=== PATIENT | male | born 1990 | race Caucasian/White ===

== ENCOUNTER 2016-11-02 08:12 | Emergency (ER) | payer SELFPAY ==
[2016-11-02 08:26] VITALS: BP 143/96
--- NOTE | 2016-11-02 08:54 | UC ---
Rectal Pain HPI - HPI Summary HPI Summary: Anal pain starting last night with movement and sitting, no BM last night. This morning pain increased, some bleeding with BM. Has had hemorrhoid and polyp in the past requiring surgery. - History Of Current Complaint Chief Complaint: UCGU Stated Complaint: RECTAL PAIN Time Seen by Provider: 11/02/16 08:24 Hx Obtained From: Patient Onset/Duration: Gradual Onset, Lasting Hours Timing: Constant Severity Initially: Mild Severity Currently: Moderate Location Of Pain: Anal Character: Sharp, Pressure Aggravating Factor(s): Bowel Movement, Sitting, Walking Associated Signs And Symptoms: Positive: Rectal Bleeding Related History: Hemorrhoids - Allergies/Home Medications Allergies/Adverse Reactions: Allergies Allergy/AdvReac Type Severity Reaction Status Date / Time No Known Allergies Allergy Verified 11/02/16 08:19 PMH/Surg Hx/FS Hx/Imm Hx Previously Healthy: Yes - Surgical History Surgical History: Yes Surgery Procedure, Year, and Place: [facility] - Family History Known Family History: Positive: None - reviewed & noncontributory - Social History Alcohol Use: Weekly Alcohol Amount: 4 beers 3 times per wek Substance Use Type: None Smoking Status (MU): Current Every Day Smoker Type: Cigarettes, Smokeless Tobacco Amount Used/How Often: 1 can weekly/ 1.5pack per week Household Exposure Type: Cigarettes - Immunization History Most Recent Influenza Vaccination: n/a Most Recent Tetanus Shot: n/a Most Recent Pneumonia Vaccination: n/a Review of Systems Constitutional: Negative Skin: Negative Eyes: Negative ENT: Negative Respiratory: Negative Cardiovascular: Negative Gastrointestinal: Other - anal pain Genitourinary: Negative Motor: Negative Neurovascular: Negative Musculoskeletal: Negative Neurological: Negative Psychological: Negative All Other Systems Reviewed And Are Negative: Yes Physical Exam Triage Information Reviewed: Yes Appearance: Well-Appearing, No Pain Distress, Well-Nourished Vital Signs: Initial Vital Signs Temp 98.5 F 11/02/16 08:14 Pulse 80 11/02/16 08:14 Resp 18 11/02/16 08:14 BP 143/96 11/02/16 08:14 Pulse Ox 99 11/02/16 08:14 Vital Signs Reviewed: Yes Eye Exam: Normal, Other - PERRL Eyes: Positive: Conjunctiva Clear ENT Exam: Normal ENT: Positive: Normal ENT inspection, Hearing grossly normal, Pharynx normal, TMs normal Dental Exam: Normal Neck exam: Normal Neck: Positive: Supple, Nontender, No Lymphadenopathy Respiratory Exam: Normal Respiratory: Positive: Chest non-tender, Lungs clear, Normal breath sounds, No respiratory distress, No accessory muscle use Cardiovascular Exam: Normal Cardiovascular: Positive: RRR, No Murmur Abdomen Description: Positive: Soft, Other: - painful pea-sized mass on L side of anus, somewhat inside external ring. No purple/black discoloration, no drainage, no visible blood. ZAYNAB deferred due to patient pain. Negative: CVA Tenderness (R), CVA Tenderness (L), McBurney's Point Tenderness, Peritoneal Signs Bowel Sounds: Positive: Present Musculoskeletal Exam: Normal Neurological Exam: Normal Neurological: Positive: Alert Psychological Exam: Normal Skin Exam: Normal Rectal Pain Course/Dx - Differential Dx/Diagnosis Provider Diagnoses: hemorrhoid. elevated blood pressure due to pain Discharge - Discharge Plan Condition: Stable Disposition: HOME Prescriptions: Lidocaine 2% VISCOUS* 2 ml TOPICAL Q2H PRN #1 btl PRN Reason: pain Patient Education Materials: Thrombosed Hemorrhoid (ED) Forms: *Work Release Referrals: Rinku Agarwal MD [Medical Doctor] - Gurpreet Boucher MD [Medical Doctor] - 1 Day Additional Instructions: As we discussed, you may benefit from a procedure to help your hemorrhoid, but it is too deep for me to do in urgent care. The general surgeon may be able to do it as an office procedure -- please call them this morning to see if you can get an urgent appointment today or tomorrow. Otherwise, please use the lidocaine as needed for pain. In addition, you can try : * an [id number] hemorrhoid cream/gel/foam that has hydrocortisone in it twice per day * docusate sodium 1-2 times per day as a stool softener * extra fiber to make sure your stool is soft and easy to pass. If fiber is not enough to help you have comfortable stool, you can try using one dose of miralax per day.
== END 2016-11-02 08:50 | disposition home or self-care (01) ==
LOC: UCEAST 08:12
DX: K64.9 Unspecified hemorrhoids (principal); K62.5 Hemorrhage of anus and rectum; F17.220 Nicotine dependence, chewing tobacco, uncomplicated; F17.210 Nicotine dependence, cigarettes, uncomplicated
CPT/HCPCS: 99212; G0463

== ENCOUNTER 2016-11-14 15:26 | Emergency (ER) | payer SELFPAY ==
[2016-11-14] MEDS ORDERED: NS 0.9% 1000 ML* 1,000 ML IV ONE (15:45)
[2016-11-14] MEDS ORDERED: cefTRIAXone(*) 1 GM in NS 0.9% 50 ML* 50 ML IVPB ONE (15:52)
[2016-11-14 15:59] LABS: Hematocrit 51 % (42-52); Hemoglobin 17.2 g/dl (14.0-18.0); Mean Corpuscular HGB Conc 34 g/dl (31-36); Mean Corpuscular Hemoglobin 33 pg (27-31); Mean Corpuscular Volume 96 fL (80-94); Mean Platelet Volume 10 um3 (7.4-10.4); Red Blood Count 5.27 10^6/ul (4.0-5.4); Red Cell Distribution Width 14 % (10.5-15); White Blood Count 8.1 10^3/ul (3.5-10.8)
[2016-11-14 16:00] LABS: Add Diff/Slide Review? Slide Review Added; Comments Flag Yes
[2016-11-14] MEDS ORDERED: diPHENhydraMINE IV* 50 MG/ML 1 ml VIAL (BENADRYL) IV ONE (16:05)
[2016-11-14 16:14] LABS: Albumin 4.5 g/dL (3.2-5.2); BUN/Creatinine Ratio 8.4 (8-20); C Reactive Protein 2.73 mg/L (< 5.00); Calcium 9.3 mg/dL (8.6-10.3); EGFR African American 124.2 (>60); EGFR Non-African American 96.6 (>60); Globulin 2.6 g/dL (2-4); Potassium 3.6 mmol/L (3.5-5.0); Total Bilirubin 0.9 mg/dL (0.2-1.0); Total Protein 7.1 g/dL (6.4-8.9)
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
[2016-11-14] MEDS ORDERED: Tetan/Diph/Pertus SYR(Tdap)* 0.5 ML SYR(BOOSTRIX) use SYR IM ONE (17:06)
[2016-11-14 17:12] VITALS: BP 147/77
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
== END 2016-11-14 17:35 | disposition home or self-care (01) ==
LOC: ED 15:26
DX: L03.90 Cellulitis, unspecified (principal); S31.119A Laceration without foreign body of abdominal wall, unspecified quadrant without penetration into peritoneal cavity, initial encounter; W26.0XXA Contact with knife, initial encounter; Y93.9 Activity, unspecified; Y92.89 Other specified places as the place of occurrence of the external cause; F17.210 Nicotine dependence, cigarettes, uncomplicated; Z87.19 Personal history of other diseases of the digestive system; Z90.89 Acquired absence of other organs
CPT/HCPCS: 36415; 72192; 80053; 83605; 83690; 85025; 86140; 87040; 99282; J0696; J1200

== ENCOUNTER → 2018-09-29 09:59 | Emergency (ER) | payer SELFPAY ==
[~2018-09-29 09:59] MED LIST: Iohexol 300* (CONTRAST) 10 ML SDV IV ONE; Morphine 4 MG/ML VIAL (1 ml) 4 MG/ML VIAL IV ONE; NS 0.9% 1000 ML** 1,000 ML IV ONE; Octreotide Acetate* 50 MCG in NS 0.9% 50 ML* 50 ML IV ONE; Octreotide Acetate* 500 MCG in NS 0.9% 100 ML* 100 ML IV SCH; Ondansetron INJ* 2 MG/ML VIAL IV ONE; Pantoprazole IV* 40 MG IV ONE; Pantoprazole* 80 mg IN NS 80 MG/250 ML BAG IV SCH
--- NOTE | 2018-09-29 10:11 | ED ---
Abdominal Pain/Male - HPI Summary HPI Summary: 27 year old M presenting to [facility] with a chief complaint of LUQ abdominal pain since 07:00 this morning 09/29/18. The patient rates the pain 10/10 in severity. Symptoms aggravated by nothing. Symptoms alleviated by nothing. Patient reports hematemesis described as vomit with bright red blood streaks that turned the toilet bowl red. Nurse Natalya reports nausea. Nurse Natalya reports shortness of breath when the LUQ abdominal pain becomes stabbing. Nurse Natalya reports that patient is hot to touch but has no fever. Nurse Hoang states pt denies diarrhea and chest pain. Per nurse Hoang, patient was lightheaded after working outdoors yesterday 09/28/18. Patient states his last normal bowel movement was yesterday and it was not dark like when he had previous bleeding gulcer. He states that the last thing he ate was a burger yesterday 09/28/18 evening. He had a glass of water at 07:00 today 09/29/18 after he vomited. Patient was diagnosed with ulcers in 2018 at [facility]. Patient had an endoscopy which showed ulcers and "thin stomach burton". 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 Patient does not take medications. Nurse Hoang reports appendectomy. Nurse Hoang states patient still has his gallbladder. Patient drinks 4-5 beers every night. Patient smokes 1 PPD. Patient does not have a primary care provider. He denies Fhx ulcers. He states his parents are alive and well. He states that his father had a brain bleed after falling and having a stroke. Vital signs while in room: HR 93 bpm, BP 178/106, O2 sat 98% Home Medications Medication Instructions Recorded Confirmed Type NK [No Home Medications Reported] 09/29/18 09/29/18 History - History of Current Complaint Chief Complaint: EDAbdPain Stated Complaint: ABD PAIN PER PT Hx Obtained From: Patient Onset/Duration: Sudden Onset, Lasting Hours - 07:00 this morning 09/29/18, Still Present Timing: Constant Severity Initially: Moderate - 7/10 per triage nurse's note Severity Currently: Severe Pain Intensity: 10 Pain Scale Used: 0-10 Numeric Location: Discrete At: LUQ Radiates: No Character: Sharp Aggravating Factor(s): Nothing Alleviating Factor(s): Nothing Associated Signs And Symptoms: Positive: Nausea, Other - hematemesis, hot to touch, SOB. Negative: Fever, Chest Pain - Allergies/Home Medications Allergies/Adverse Reactions: Allergies Allergy/AdvReac Type Severity Reaction Status Date / Time No Known Allergies Allergy Verified 09/29/18 10:03 PMH/Surg Hx/FS Hx/Imm Hx Previously Healthy: No Endocrine/Hematology History: Denies: Hx Diabetes Cardiovascular History: Denies: Hx Congestive Heart Failure, Hx Hypertension Respiratory History: Reports: Hx Asthma GI History: Reports: Hx Ulcer, Other GI Disorders - Hx hemorrhoids History: Denies: Hx Renal Disease Psychiatric History: Denies: Hx Eating Disorder, Hx of Violent Episodes Against Others - Surgical History Surgery Procedure, Year, and Place: [facility] hemorrhoid removal. endoscopy in [place] Infectious Disease History: No Infectious Disease History: Denies: Traveled Outside the [place] in Last 30 Days - Family History Known Family History: Positive: Other - Denies Fhx ulcers Negative: Cardiac Disease, Hypertension, Diabetes Family History: Both parents alive and well. Father had bleeding in brain from fall and stroke - Social History Alcohol Use: Daily Alcohol Amount: 4-5 beers every night Hx Substance Use: No Substance Use Type: Reports: None Hx Tobacco Use: Yes Smoking Status (MU): Current Every Day Smoker Type: Cigarettes, Smokeless Tobacco Amount Used/How Often: 1 PPD Review of Systems Negative: Fever Negative: Chest Pain Positive: Shortness Of Breath Positive: Abdominal Pain - LUQ, Nausea, Other - hematemesis. Negative: Diarrhea Positive: no symptoms reported Musculoskeletal: Negative Positive: Other - hot to touch Neurological: Negative Psychological: Normal All Other Systems Reviewed And Are Negative: Yes Physical Exam - Summary Physical Exam Summary: Appearance: Ill-appearing, severe pain distress, well-nourished, clutching his LUQ Skin: Warm, color reflects adequate perfusion, dry Head: Normal Head/Face inspection, atraumatic Eyes: Conjunctiva clear ENT: Normal inspection Neck: Supple, no nodes, no JVD Respiratory: Lungs clear, normal breath sounds, no respiratory distress Cardio: RRR, No murmur, pulses normal, brisk capillary refill Abdomen: Soft, tenderness LUQ and LLQ, no guarding, no rebound, no masses, non- distended Bowel sounds: Present Musculoskeletal: Strength Intact/ROM intact, no calf tenderness, no edema. Psychological: Normal Neuro: Alert, muscle tone normal, no focal deficit Rectal exam chaperoned by Camren LY: Rectal was non-tender, no stool in the vault , slight yellow mucous, normal prostate, sent for testing Triage Information Reviewed: Yes Vital Signs On Initial Exam: Initial Vitals Temp Pulse Resp BP Pulse Ox 97.9 F 83 22 172/109 97 09/29/18 10:02 09/29/18 10:02 09/29/18 10:02 09/29/18 10:02 09/29/18 10:02 Vital Signs Reviewed: Yes Diagnostics - Vital Signs Vital Signs Temp Pulse Resp BP Pulse Ox 09/29/18 10:02 97.9 F 83 22 172/109 97 - Laboratory Result Diagrams: 09/29/18 10:46 09/29/18 10:46 Lab Statement: Any lab studies that have been ordered have been reviewed, and results considered in the medical decision making process. - CT Abdomen CT Interpretation Completed By: Radiologist Summary of CT Findings: HEPATOMEGALY WITH FATTY INFILTRATION OF THE LIVER. ED physician has reviewed this report. Re-Evaluation - Re-Evaluation First Eval Re-Evaluation Time: 11:48 Change: Unchanged Comment: Drinking contrast. Still has abdominal pain that is rated an 8. Less nausea. Will give more pain medication, morphine, Zofran. BP 152/93, HR 85. Second Eval Re-Evaluation Time: 13:29 Change: Unchanged Comment: Informed of CT Abdomen results. Pain is controlled. Third Eval Re-Evaluation Time: 15:28 Change: Unchanged Comment: Dr. Beth is in room with patient. Will order more morphine. Fourth Eval Re-Evaluation Time: 15:40 Change: Unchanged Comment: Patient is trying PO challenge Fifth Eval Re-Evaluation Time: 16:55 Change: Improved Comment: Patient feels great and is in no pain. He was able to eat without pain or vomiting. He agrees to discharge. Sixth + Eval Comment: . Abdominal Pain Male Course/Dx - Course Course Of Treatment: 27 yo M with hx ulcers on EGD in setting of NSAID use presents with severe LUQ pain and hemetemsis x 1. No current use of NSAID. Pt drinks alcohol daily, 3-4 beers daily. Pt received morphine IV x 3 for pain, ondansetron, and IV fluids and pain was controlled. Pt has no vomiting or hemetemsis in the ED. Stool was guaiac neg. Pt had GI consult by Dr. Ronald Mayorga. Patient medications reviewed this visit. Nurses notes reviewed. High blood pressure noted. Test results with no significant abnormalities except for Plt count 138, AST 69, ALT 105,( note AST not greater than ALT which would be expected with ETOH) total creatine kinase 265. H/H was normal. Stool sample was negative for occult blood. Urines showed no significant abnormalities. Toxicology positive for opiates (given in ED prior to UA) and cannabinoids. In the ED course, the patient was given Morphine 4 mg IV, Zofran 4 mg IV, pantoprazole sodium 80 mg IV, fluids 1 L IV. At 11:15, called Dr. Beth, GI, and spoke with Anayeli who said that Dr. Beth is doing a procedure. Spoke with Dr. Beth at 11:39 who agrees with getting the CT and recommends giving patient octreotide, in case there is liver disease. The patient was given octreotide acetate bolus and drip and also pantoprazole drip. CT Abdomen shows, per radiologist, HEPATOMEGALY WITH FATTY INFILTRATION OF THE LIVER. At 13:29, Dr. Beth asked us to keep patient NPO, said that she will consider doing EGD today and that she will come down to see patient. At 15:22, Dr. Beth said she is coming to the ED right now. At 15:40, Dr. Beth advises that if patient can eat, then he can go home on omeprazole and pain medications and she will scope him in the next 1-2 weeks. Otherwise, she will admit him. Patient is trying PO challenge at 15:40. Patient is able to eat turkey sandwich in the ED without pain, nausea or hemetemesis. At 16:37, spoke with Dr. Beth who agrees to see patient in her office with plan to do EGD. Pt is counseled against alcohol abuse. Pt's mother is with pt, and is his ride home. Patient feels better, is pain free, and would like to go home. Patient will be discharged home with prescription for omeprazole and tramadol and follow up from Dr. Beth as soon as possible. Patient was instructed to return to ED for new or worsening symptoms. Patient understands and is agreeable to this discharge plan. - Diagnoses Differential Diagnosis/HQI/PQRI: Gall Bladder Disease, Hepatitis, Pancreatitis, Peptic Ulcer Disease, Ureteral Stone Provider Diagnoses: Abdominal pain, Hematemesis, Thrombocytopenia, Transaminitis, Elevated BP without diagnosis of hypertension, Tobacco abuse disorder, Alcohol abuse, Hepatomegaly, Steatosis of liver - Provider Notifications Discussed Care Of Patient With: Radha Beth Time Discussed With Above Provider: 11:39 Instructed by Provider To: Other - Dr. Beth, GI, agrees with getting the CT and recommends giving patient octreotide. At 13:29, Dr. Beth asked us to keep patient NPO, said that she will consider doing EGD and that she will come down to see patient. At 15:22, Dr. Beth said she is coming to the ED right now. Discharge - Sign-Out/Discharge Documenting (check all that apply): Patient Departure - Discharge home with mother driving Patient Received Moderate/Deep Sedation with Procedure: No - Discharge Plan Condition: Stable Disposition: HOME Prescriptions: Omeprazole 20 mg PO BID #60 tablet. traMADol TAB* [Ultram*] 25 mg PO Q6HR PRN #12 tab MDD 4 PRN Reason: Severe Pain Patient Education Materials: Acute Abdominal Pain (ED) Referrals: Care [facility] [Outside] - If Needed [facility] PHYSICIAN REFERRAL [Outside] - 2 Days Radha Beth MD [Medical Doctor] - As Soon As Possible (Dr. Beth' s office will call you to make an appointment for an upper endoscopy. ) Additional Instructions: You may have an ulcer. Dr. Beth will do an endoscopy to see if there is an ulcer there. In the mean time, take the medication as directed, to start treating a possible ulcer. Return to the emergency department for new or worsening symptoms. - Billing Disposition and Condition Condition: STABLE Disposition: Home - Attestation Statements Document Initiated by Scribe: Yes Documenting Scribe: Mari Zapata Provider For Whom Tyshawn is Documenting (Include Credential): Mery Monet MD Scribe Attestation: I, Mari Benny, scribed for Mery Monet MD on 09/30/18 at 1642. Scribe Documentation Reviewed: Yes Provider Attestation: The documentation as recorded by the scribe, Mari Zapata accurately reflects the service I personally performed and the decisions made by me, Mery Monet MD Status of Scribe Document: Viewed
[2018-09-29 11:02] LABS: ABS Eosinophils 0.1 10^3/ul (0-0.6); ABS Lymphocytes 1.2 10^3/ul (1.0-4.8); ABS Monocytes 0.9 10^3/ul (0-0.8); ABS Neutrophils 4.1 10^3/ul (1.5-7.7); Eosinophil % 1.8 %; Hematocrit 47 % (42-52); Hemoglobin 16.6 g/dL (14.0-18.0); Lymphocyte % 19.1 %; Mean Corpuscular HGB Conc 35 g/dL (31-36); Mean Corpuscular Hemoglobin 33 pg (27-31); Mean Corpuscular Volume 94 fL (80-94); Mean Platelet Volume 10.2 fL (7.4-10.4); Platelet Count 138 10^3/uL (150-450); Red Blood Count 5.01 10^6 /uL (4.18-5.48); Red Cell Distribution Width 14 % (10-15); White Blood Count 6.3 10^3/uL (3.5-10.8)
[2018-09-29 11:18] LABS: Albumin 4.3 g/dL (3.2-5.2); Albumin/Globulin Ratio 1.8 (1-3); BUN/Creatinine Ratio 7.7 (8-20); C Reactive Protein 2.59 mg/L (<8.01); Calcium 9.3 mg/dL (8.6-10.3); EGFR African American 120.9 (>60); EGFR Non-African American 99.9 (>60); Globulin 2.4 g/dL (2-4); Magnesium 1.9 mg/dL (1.9-2.7); Total Bilirubin 0.4 mg/dL (0.2-1.0); Total Protein 6.7 g/dL (6.4-8.9)
[2018-09-29 11:20] LABS: Activated Partial Thrombo Time 26.8 seconds (26.0-38.0); INR 0.94 (0.82-1.09)
[2018-09-29 13:53] LABS: Urine Appearance Clear; Urine Bilirubin Negative (Negative); Urine Blood Negative (Negative); Urine Color Yellow; Urine Glucose Negative (Negative); Urine Ketones Negative (Negative); Urine Nitrite Negative (Negative); Urine Protein Negative (Negative); Urine Specific Gravity 1.034 (1.010-1.030); Urine Urobilinogen Negative (Negative)
[2018-09-29 14:17] LABS: Urine Benzodiazepine Screen None Detected (None Detect); Urine Opiates Screen Presumptive Positive (None Detect)
[2018-09-29 18:15] VITALS: BP 173/101
--- NOTE | 2018-09-29 20:49 | CONS ---
GASTROENTEROLOGY CONSULT REPORT: DATE OF CONSULT: 09/29/18 CONSULTING PROVIDER: Dr. Monet in the ED. REASON FOR CONSULT: Abdominal pain and hematemesis. HISTORY OF PRESENT ILLNESS: Mr. Goel is a 27-year-old gentleman with a history of peptic ulcer disease in the setting of NSAID use, who presents for one episode of hematemesis and abdominal pain. Mr. Goel was in his usual state of health until this morning when he developed left upper quadrant abdominal pain. Pain was severe. Associated with 1 episode of vomiting with a small amount of bright red blood noticed in the emesis. Presented to the ED for evaluation of the abdominal pain. Denies any diarrhea, constipation, blood in the stools. No fevers or chills. No reflux symptoms or other episodes of nausea or vomiting. The patient reports that he was hospitalized in 2018 with gastric ulcers. He was taking NSAIDs at the time of this diagnosis. He stopped taking NSAIDs and was placed on PPI for a few months. It does not appear that he was seen in followup by GI. Denies any ongoing NSAID use at today's visit. No long on PPI. In the ER, the patient was noted to be hemodynamically stable. Labs were notable for a normal white count and hemoglobin of 16.6. Platelet count 138. It appears that the patient has chronic thrombocytopenia dating back at least several years. INR is normal. Comprehensive panel notable for AST of 69, ALT of 105, alk phos of 54, bilirubin of 0.4. Amylase and lipase were normal. CT abdomen was performed in the ED. CT demonstrated hepatomegaly with fatty infiltration of the liver. Pancreas and spleen were noted to be normal. Upper GI tract was limited by incomplete gastric distention, but appeared unremarkable. Small bowel was unremarkable. Colon was unremarkable. PMH: 1. 2017 PSH: No abdominal surgeries MEDS: None ALLERGIES: NKDA FH: No known GI or liver disease. 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 Drinks at least 4 beers per night. PHYSICAL EXAM: Vital Signs: Afebrile, heart rate 60, blood pressure 145/87, 96% on room air. General: Young gentleman. No acute distress. Mother at bedside. HEENT: Anicteric sclerae. Mucous membranes moist. Cardiovascular: Regular rate and rhythm. No murmurs, rubs, or gallops. Pulmonary: Scattered wheezing in the upper lung esparza bilaterally. Abdomen: Soft, nondistended. Tenderness in left upper quadrant and epigastrium. No rebound tenderness. Extremities: No edema. Skin: No jaundice. DIAGNOSTIC STUDIES/LAB DATA: Labs reviewed in HPI. Normal white count and hemoglobin. Platelet count low, which is chronic. INR normal. Comprehensive panel notable for elevated AST and ALT. Lipase normal. Urine tox notable for positive opiates and cannabinoids. IMPRESSION AND RECOMMENDATIONS: Mr. Goel is a 27-year-old gentleman with a history of peptic ulcer disease related to NSAIDs as well as heavy alcohol use , who presents with 1 episode of hematemesis and upper abdominal pain. Acute onset LUQ pain similar to prior episode of NSAID-related PUD. No recent NSAID use. Vomited small amount of hematemesis once. Pain improved with Morphine. Able to tolerate sandwich without increase in pain. CBC WNL. CT abdomen w/o acute findings. May represent recurrent PUD, esophagitis, gastritis. Interestingly, he does have chronic thrombocytopenia of unclear etiology. Initially, I wondered if he might have chronic liver disease, although the abdominal CT does not comment on any signs of portal hypertension. I recommend that he be placed on PPI b.i.d. I offered to set him up for an outpatient EGD next week given current clinical stability. He is in agreement with this plan. I explained that I am concerned about his liver enzymes, particularly in setting of daily alcohol use. I would like to see him in clinic to discuss this further. I cautioned him against ongoing heavy alcohol use. Thank you very much for this consult. Please contact GI if any further questions. [id number]/[facility] #: [id number] DANIELLE
== END | disposition home or self-care (01) ==
LOC: ED 09:59
DX: R10.12 Left upper quadrant pain (principal); K92.0 Hematemesis; D69.6 Thrombocytopenia, unspecified; R74.0 Nonspecific elevation of levels of transaminase and lactic acid dehydrogenase [LDH]; R03.0 Elevated blood-pressure reading, without diagnosis of hypertension; F10.10 Alcohol abuse, uncomplicated; R16.0 Hepatomegaly, not elsewhere classified; K76.0 Fatty (change of) liver, not elsewhere classified; F17.210 Nicotine dependence, cigarettes, uncomplicated
CPT/HCPCS: 36415; 74160; 80053; 80307; 81003; 82150; 82272; 82550; 83605; 83690; 83735; 85025; 85610; 85730; 86140; 86850; 86900; 86901; 96361; 96374; 96375; 99284; J2270; J2354; J2405; Q9967

== ENCOUNTER 2018-11-07 11:29 | Emergency (ER) | payer MEDICAID ==
[2018-11-07 11:44] VITALS: BP 157/94
--- OUTSIDE RECORDS SUMMARY | 2018-11-07 11:53 | XMS REPORT | Continuity of Care Document ---
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 Thiamine HCL 1 by mouth 30tabs F10.21 Devin Fields MD 10/18/2018 100mg Tablets every day Multivitamin Adults take 1 tab 30tabs F10.21 Devin Fields MD 10/18/2018 Tablets daily Folic Acid take one 90tabs F10.21 Devin Fields MD 10/18/2018 1mg Tablets capsule/tablet daily by mouth Clonidine HCL 1 by mouth 60tabs F10.21 Devin Fields MD 10/18/2018 0.1mg Tablets twice a day Chlordiazepoxide HCL take 1 pill 9caps F10.21 Devin Fields MD 10/18/2018 10mg twice a day Capsules for 3 days then 1 pill once a day then stop Dilaudid 1 pill once a 7tabs M54.5 Devin Fields MD 10/18/2018 2mg Tablets day in Am as needed History Medications No Active Medications Unknown 10/18/2018 - 10/18/2018 Colace 1 tab by mouth as Unknown - 10/17/2018 100mg Capsules needed Lidocaine HCL apply to affected area Unknown - 10/17/2018 2% Gel 3 - 4 times daily as needed Vital Signs Date Vital Result Comment 10/18/2018 10:45am Height 71 inches 5'11" Weight 215.00 lb Heart Rate 56 /min BP Systolic 133 mmHg BP Diastolic 85 mmHg Body Temperature 97.5 F O2 % BldC Oximetry 94 % BMI (Body Mass Index) 30.0 kg/m2 11/03/2016 9:56am Height 71 inches 5'11" Weight 180.00 lb Heart Rate 80 /min BP Systolic 158 mmHg BP Diastolic 80 mmHg Respiratory Rate 16 /min Body Temperature 98.2 F BMI (Body Mass Index) 25.1 kg/m2 Procedures Date Code Description Status 11/03/2016 83904 Incision Thrombosed Hemorrhoid External Completed Plan of Treatment Future Appointment(s):11/01/2018 11:40 am - Devin Fields MD at [facility] Internal Medicine - [address]/18/2018 - Devin Fields MDF10.21 Alcohol dependence, in remissionNew Medication:Thiamine HCL 100 mg - 1 by mouth every dayMultivitamin Adults - take 1 tab dailyFolic Acid 1 mg - take one capsule/tablet daily by mouthClonidine HCL 0.1 mg - 1 by mouth twice a dayChlordiazepoxide HCL 10 mg - take 1 pill twice a day for 3 days then 1 pill once a day then stopFollow up:2 weeks.R74.0 Nonspecific elevation of levels of transaminase and lactic aK92.0 FmblbqbnnlrZ01.13 Epigastric painM54.5 Low back painNew Medication:Dilaudid 2 mg - 1 pill once a day in Am as ornuhnF52.6 Thrombocytopenia, qmrmyilyhhzY59.2 Nausea with vomiting, unspecifiedNew Medication:Zofran 4 mg - take 1 tab every 6 hours as needed for vomiting.
--- OUTSIDE RECORDS SUMMARY | 2018-11-07 11:53 | XMS REPORT | Continuity of Care Document ---
:1990 External Reference #:[id number] Author Name Anayeli Bolton Care Team Providers Name Role Phone Devin Fields MD Care Team Information Server Service Assistant Unavailable Payers Date Identification Numbers Payment Provider Subscriber Policy Number: [id number] Medicaid Mian Goel [employer] Name: 1 1 [address] PayID: [id number] [place] [address] Expires: 2018 PayID: [id number] [place] Mian Goel [address] [place] [address] Social History Type Date Description Comments Sex Unknown Tobacco Use Start: Unknown Patient is a current smoker, smokes every day Smoking Status Reviewed: 11/01/18 Patient is a current smoker, smokes every day Allergies, Adverse Reactions, Alerts Description No Known Drug Allergies Medications Active Medications SIG Qnty Indications Ordering Date Provider Colace 1 tabs twice daily 60caps R10.9 Devin Fields MD 11/01/2018 100mg Capsules as needed for constipation. Miralax 17 gm by mouth 510gm R10.9 Devin Fields MD 11/01/2018 [id number] Powder daily as needed for constipation Dilaudid 1 pill every 6 42tabs R10.13 Devin Fields MD 11/01/2018 2mg Tablets hours as needed for severe pain Carafate Take 1 tab three 90tabs R10.13 Devin Fields MD 11/01/2018 1gm Tablets times a day Senna S 1 tab daily as 60tabs R10.9 Devin Fields MD 11/01/2018 8.6-50mg Tablets needed Cyclobenzaprine HCL 1 by mouth three 90tabs M54.5 Devin Fields MD 11/01/2018 10mg times a day Tablets Prochlorperazine take three times a 90tabs R11.2 Devin Fields MD 11/01/2018 Maleate day for 10mg Tablets nausea/vomiting Omeprazole 1 by mouth every 60caps Devin Fields MD 10/18/[address] twice a day Folic Acid take one 90tabs F10.21 Devin Fields MD 10/18/2018 1mg Tablets capsule/tablet daily by mouth Multivitamin Adults take 1 tab daily 30tabs F10.21 Devin Fields MD 2018 Tablets Thiamine HCL 1 by mouth every 30tabs F10.21 Devin Fields MD 10/18/2018 100mg Tablets day Zofran take 1 tab every 6 30tabs R11.2 Devin Fields MD 10/18/2018 4mg Tablets hours as needed for vomiting. History Medications No Active Medications Unknown 10/18/2018 - 10/18/2018 Clonidine HCL 1 by mouth twice 60tabs F10.21 Devin Fields MD 10/18/2018 - 0.1mg Tablets a day 11/01/2018 Chlordiazepoxide HCL take 1 pill 9caps F10.21 Devin Fields MD 10/18/2018 - 10mg twice a day for 11/01/2018 Capsules 3 days then 1 pill once a day then stop Dilaudid 1 pill once a 7tabs M54.5 Devin Fields MD 10/18/2018 - 2mg Tablets day in Am as 10/19/2018 needed Colace 1 tab by mouth Unknown - 100mg Capsules as needed 10/17/2018 Lidocaine HCL apply to Unknown - 2% Gel affected area 3 10/17/2018 - 4 times daily as needed Vital Signs Date Vital Result Comment 11/01/2018 11:48am Weight 212.00 lb Heart Rate 56 /min BP Systolic 131 mmHg BP Diastolic 86 mmHg Respiratory Rate 18 /min Body Temperature 97.3 F Pain Level 8 O2 % BldC Oximetry 98 % 10/18/2018 10:45am Height 71 inches 5'11" Weight [...] F BMI (Body Mass Index) 25.1 kg/m2 Results Test Date Facility Test Result H/L Range Note Laboratory test 10/19/2018 [facility] Lipase 48 U/L Normal 11.0-82.0 finding [address] [place] [address] [phone] Liver Function 10/19/2018 [facility] Total Protein 6.5 g/dL Normal 6.4-8.9 Panel [address] [place] [address] [phone] Albumin 4.4 g/dL Normal 3.2-5.2 Globulin 2.1 g/dL Normal 2-4 Albumin/Globulin Ratio 2.1 Normal 1-3 Total Bilirubin 0.30 mg/dL Normal 0.2-1.0 Direct Bilirubin 0.10 mg/dL Normal 0.03-0.18 Indirect Bilirubin 0.2 mg/dL Low 0.3-1.0 Alkaline Phosphatase 55 U/L Normal 34-104 Alt 83 U/L High 7-52 Ast 47 U/L High 13-39 Basic Metabolic 10/19/2018 [facility] Sodium 140 mmol/L Normal 135-145 Panel [facility] [place] [address] [phone] Potassium 4.2 mmol/L Normal 3.5-5.0 Chloride 110 mmol/L Normal 101-111 Co2 Carbon Dioxide 23 mmol/L Normal 22-32 Anion Gap 7 mmol/L Normal 2-11 Glucose 103 mg/dL High 70-100 Blood Urea Nitrogen 9 mg/dL Normal 6-24 Creatinine 0.81 mg/dL Normal 0.67-1.17 BUN/Creatinine Ratio 11.1 Normal 8-20 Calcium 9.1 mg/dL Normal 8.6-10.3 Egfr Non- 114.3 >60 Egfr 138.3 >60 1 CBC Auto 10/19/2018 [facility] White Blood 15.2 10^3/uL High 3.5-10.[address] [facility] [place] [address] [phone] Red Blood Count 5.03 10^6/uL Normal 4.18-5.48 Hemoglobin 16.2 g/dL Normal 14.0-18.0 Hematocrit 48 % Normal 42-52 Mean Corpuscular Volume 96 fL High 80-94 Mean Corpuscular Hemoglobin 32 pg High 27-31 Mean Corpuscular HGB Conc 34 g/dL Normal 31-36 Red Cell Distribution Width 14 % Normal 10-15 Platelet Count 184 10^3/uL Normal 150-450 Mean Platelet Volume 10.4 fL Normal 7.4-10.4 Abs Neutrophils 12.7 10^3/uL High 1.5-7.7 Abs Lymphocytes 1.2 10^3/uL Normal 1.0-4.8 Abs Monocytes 1.1 10^3/uL High 0-0.8 Abs Eosinophils 0.1 10^3/uL Normal 0-0.6 Abs Basophils 0.1 10^3/uL Normal 0-0.2 Abs Nucleated RBC 0.0 10^3/uL Granulocyte % 83.5 % Lymphocyte % 7.9 % Monocyte % 7.3 % Eosinophil % 1.0 % Basophil % 0.3 % Nucleated Red Blood Cells % 0.0 Inr/Protime 10/19/2018 [facility] Inr 1.05 Normal 0.82-1.[address] [place] [address] [phone] Laboratory test 10/19/2018 [facility] Hemoglobin A1c 5.6 % Normal 4.0-5.[address] (Glyco HGB) [place] [address] [phone] 1 Because ethnic data is not always readily available, this report includes an eGFR for both -Americans and non- Americans. The National Kidney Disease Education Program (NKDEP) does not endorse the use of the MDRD equation for patients that are not between the ages of 18 and 70, are , have extremes of body size, muscle mass, or nutritional status, or are non- or non-. According to the National Kidney Foundation, irrespective of diagnosis, the stage of the disease is based on the level of kidney function: Stage Description GFR(mL/min/1.73 m(2)) 1 Kidney damage with normal or decreased GFR 90 2 Kidney damage with mild decrease in GFR 60-89 3 Moderate decrease in GFR 30-59 4 Severe decrease in GFR 15-29 5 Kidney failure <15 (or dialysis) 2 Standard intensity warfarin therapeutic range: 2.0-3.0 High intensity warfarin therapeutic range: 2.5-3.5 3 Therapeutic target for the treatment of diabetes mellitus patients is <7% HBA1C, and in selective patients <6.0%. Please refer to [place] [employer] diabetic care guidelines for further information. 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 - [address] in remission R74.0 Nonspec elev of levels of transamns & lactic acid dehydrgnse K92.0 Hematemesis R10.13 Epigastric pain M54.5 Low back pain D69.6 Thrombocytopenia, unspecified R11.2 Nausea with vomiting, unspecified Plan of Treatment Future Appointment(s):11/08/2018 11:40 am - Devin Fields MD at [facility] [address] Internal Medicine - [address]/01/2018 - Devin Fields MDF10.21 Alcohol dependence, in uzxpjkjzmQ21.5 Low back painNew Medication:Cyclobenzaprine HCL 10 mg - 1 by mouth three times a dayR10.13 Epigastric painNew Medication:Dilaudid 2 mg - 1 pill every 6 hours as needed for severe painCarafate 1 gm - Take 1 tab three times a dayR10.9 Unspecified abdominal painNew Medication:Colace 100 mg - 1 tabs twice daily as needed for constipation.Miralax 3350 NF - 17 gm by mouth daily as needed for constipationSenna S 8.6-50 mg - 1 tab daily as neededNew Xrays:CT Abd/Pel W/Wo, Ordered: 11/01/18Follow up:1 weekR11.2 Nausea with vomiting, unspecifiedNew Medication:Prochlorperazine Maleate 10 mg - take three times a day for nausea/mtvmjwgcI42.7 Diarrhea, eqlulfxrzwjK29.00 Constipation, unspecified
== END 2018-11-07 13:30 | disposition left against medical advice (07) ==
LOC: ED 11:29
DX: Z53.21 Procedure and treatment not carried out due to patient leaving prior to being seen by health care provider (principal)
CPT/HCPCS: 99281

== ENCOUNTER 2018-12-10 11:12 | Emergency (ER) | payer MEDICAID, OTHER ==
[2018-12-10] MEDS ORDERED: Cyclobenzaprine TAB* 10 MG PO ONE (11:34)
[2018-12-10] MEDS ORDERED: Dexamethasone IV* 4 MG/ML 1 ML (4 MG) IM ONE (11:34)
[2018-12-10] MEDS ORDERED: Ketorolac *IM* INJ* 60 MG/2 ML VIAL IM ONE (11:34)
--- NOTE | 2018-12-10 11:37 | ED ---
Back Pain - HPI Summary HPI Summary: This patient is a 27 year old M presenting to ED with a chief complaint of lower back pain since three days ago. Patient denies trauma. When he woke up three days ago, he reports the pain shooting up his spine and radiating to a headache. Patient states he has had back problems before but hasnt had a scan for a few years. The patient rates the pain 9/10 in severity. Symptoms aggravated by nothing. Symptoms alleviated by nothing. Patient reports chills, vomiting, difficulty ambulating. Patient denies fever, dysuria, hematuria, weight loss recently, heavy lifting recently, urinary or bowel incontinence, saddle anesthesia. 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 He states he cannot take Advil because it gives him ulcers. - History of Current Complaint Chief Complaint: EDBackInjuryPain Stated Complaint: BACK PAIN PER PT Time Seen by Provider: 12/10/18 11:24 Hx Obtained From: Patient Onset/Duration: Lasting Days - 3 days ago, Still Present Onset/Duration: Started Days Ago - 3 days ago, Atraumatic, Still Present Timing: Constant, Lasting Days - 3 days Back Pain Location: Is Discrete @ - Lower back Pain Intensity: 9 Pain Scale Used: 0-10 Numeric Aggravating Symptom(s): Nothing Alleviating Symptom(s): Nothing Associated Signs And Symptoms: Positive: Negative - Hematura, dysura. Negative : Fever, Numbness, Bladder Incontinence, Bowel Incontinence, Weight Loss - Allergies/Home Medications Allergies/Adverse Reactions: Allergies Allergy/AdvReac Type Severity Reaction Status Date / Time No Known Allergies Allergy Verified 12/10/18 11:16 PMH/Surg Hx/FS Hx/Imm Hx Endocrine/Hematology History: Denies: Hx Diabetes Cardiovascular History: Denies: Hx Congestive Heart Failure, Hx Hypertension Respiratory History: Reports: Hx Asthma GI History: Reports: Hx Ulcer, Other GI Disorders - Hx hemorrhoids History: Denies: Hx Renal Disease Psychiatric History: Denies: Hx Eating Disorder, Hx of Violent Episodes Against Others - Surgical History Surgery Procedure, Year, and Place: [facility] [address]. endoscopy in [place] Infectious Disease History: No Infectious Disease History: Denies: Traveled Outside the [place] in Last 30 Days - Family History Known Family History: Positive: Other - Denies Fhx ulcers Negative: Cardiac Disease, Hypertension, Diabetes Family History: Both parents alive and well. Father had bleeding in brain from fall and stroke - Social History Alcohol Use: Daily Alcohol Amount: 4-5 beers every night Hx Substance Use: No Substance Use Type: Reports: None Hx Tobacco Use: Yes Smoking Status (MU): Current Every Day Smoker Type: Cigarettes, Smokeless Tobacco Amount Used/How Often: 1 PPD Review of Systems Positive: Chills. Negative: Fever Positive: Vomiting Genitourinary: Negative - Weight loss Negative: burning, dysuria, hematuria, incontinence Musculoskeletal: Negative - Recent heavy lifting, saddle anesthesia, Other - Difficulty ambulating All Other Systems Reviewed And Are Negative: Yes Physical Exam - Summary Physical Exam Summary: GENERAL: Patient is a well-developed and nourished M who is lying comfortable in the stretcher. Patient is not in any acute respiratory distress. HEAD AND FACE: Normocephalic EYES: PERRLA, EOMI x 2. EARS: Hearing grossly intact. MOUTH: Oropharynx within normal limits. NECK: Supple, trachea is midline, no adenopathy, no JVD, no carotid bruit. CHEST: Symmetric, no tenderness at palpation LUNGS: Clear to auscultation bilaterally. No wheezing or crackles. CVS: Regular rate and rhythm, S1 and S2 present, no murmurs or gallops appreciated. ABDOMEN: Soft, non-tender. Bowel sounds are normal. No abnormal abdominal pulsations. MUSCULOSKELETAL: Mild paraspinal tenderness in lumbar region on the right. EXTREMITIES: Full ROM in all major joints, no edema, no cyanosis or clubbing. NEURO: Alert and oriented x 3. No acute neurological deficits. Speech is normal and follows commands. SKIN: Dry and warm Triage Information Reviewed: Yes Vital Signs On Initial Exam: Initial Vitals Temp Pulse Resp BP Pulse Ox 98.7 F 94 16 159/91 99 12/10/18 11:13 12/10/18 11:13 12/10/18 11:13 12/10/18 11:13 12/10/18 11:13 Vital Signs Reviewed: Yes Diagnostics - Vital Signs Vital Signs Temp Pulse Resp BP Pulse Ox 12/10/18 11:13 98.7 F 94 16 159/91 99 - Laboratory Lab Statement: Any lab studies that have been ordered have been reviewed, and results considered in the medical decision making process. - Radiology L-spine Radiology Interpretation Completed By: Radiologist Summary of Radiographic Findings: No evidence of fracture or subluxation. Dr. Lawrence has reviewed this radiology report. Re-Evaluation - Re-Evaluation First Eval Re-Evaluation Time: 13:41 Comment: Discussed results with patient. Patient will be discharged home with dx of back pain. Patient understands and agrees with this plan. Back Pain Course/Dx - Course Course Of Treatment: This patient is a 27 year old M presenting to ED with a chief complaint of lower back pain since three days ago. In the ED course patient received Decadron, Flexeril, and Toradol IM. L-spine XR revealed No evidence of fracture or subluxation. UA obtained without abnormality. I discussed results with patient, and he reports feeling better. He is hemodynamically stable and safe for discharge. Strict return precautions given and he will otherwise follow up with his PCP. Patient will be discharged home with dx of back pain. Patient understands and agrees with this plan. - Diagnoses Provider Diagnoses: Back pain Discharge ED - Sign-Out/Discharge Documenting (check all that apply): Patient Departure - Discharge Patient Received Moderate/Deep Sedation with Procedure: No - Discharge Plan Condition: Stable Disposition: HOME Prescriptions: Cyclobenzaprine TAB* [Flexeril 10 MG TAB*] 10 mg PO TID PRN #20 tab PRN Reason: Pain - Moderate Patient Education Materials: Back Pain (ED) Referrals: Devin Fields MD [Primary Care Provider] - 3 Days Additional Instructions: Follow up with your primary care physician in 1-3 days. RETURN TO THE EMERGENCY DEPARTMENT FOR CHANGING OR WORSENING SYMPTOMS. - Billing Disposition and Condition Condition: STABLE Disposition: Home - Attestation Statements Document Initiated by Tyshawn: Yes Documenting Scribe: Kd Shin Provider For Whom Tyshawn is Documenting (Include Credential): Tere Lawrence MD Scribe Attestation: I, Kd Shin, scribed for Tere Lawrence MD on 12/10/18 at 1807. Scribe Documentation Reviewed: Yes Provider Attestation: The documentation as recorded by the Kd coon accurately reflects the service I personally performed and the decisions made by me, Tere Lawrence MD Status of Scribe Document: Viewed
[2018-12-10 13:14] LABS: Urine Appearance Clear; Urine Bilirubin Negative (Negative); Urine Blood Negative (Negative); Urine Color Yellow; Urine Glucose Negative (Negative); Urine Ketones Negative (Negative); Urine Nitrite Negative (Negative); Urine Protein Negative (Negative); Urine Specific Gravity 1.017 (1.010-1.030); Urine Urobilinogen Negative (Negative)
[2018-12-10 13:56] VITALS: BP 148/79
== END 2018-12-10 13:54 | disposition home or self-care (01) ==
LOC: ED 11:12
DX: M54.5 Low back pain (principal); R31.9 Hematuria, unspecified; J45.909 Unspecified asthma, uncomplicated; R30.0 Dysuria; F17.210 Nicotine dependence, cigarettes, uncomplicated
CPT/HCPCS: 72110; 81003; 96372; 99282; A9270-GY; J1100; J1885

== ENCOUNTER 2018-12-18 16:47 | Emergency (ER) | payer OTHER ==
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
[2018-12-18] MEDS ORDERED: Diazepam TAB(*) 5 MG PO ONE (17:18)
[2018-12-18] MEDS ORDERED: Ibuprofen TAB* 600 MG PO ONE (18:16)
[2018-12-18] MEDS ORDERED: oxyCODONE TAB* 5 MG TAB PO ONE (18:16)
[2018-12-18 19:01] VITALS: BP 162/81
== END 2018-12-18 19:00 | disposition home or self-care (01) ==
LOC: ED 16:47
DX: M25.511 Pain in right shoulder (principal); M54.9 Dorsalgia, unspecified; M54.2 Cervicalgia; M62.838 Other muscle spasm; V49.40XA Driver injured in collision with unspecified motor vehicles in traffic accident, initial encounter; Y92.410 Unspecified street and highway as the place of occurrence of the external cause; F17.210 Nicotine dependence, cigarettes, uncomplicated; J45.909 Unspecified asthma, uncomplicated
CPT/HCPCS: 72050; 72070; 99283; A9270-GY

== ENCOUNTER 2019-07-06 12:07 | Emergency (ER) | payer OTHER ==
[2019-07-06] MEDS ORDERED: oxyCODONE/Acetamin 5/325 MG* TAB PO ONE (12:34)
--- NOTE | 2019-07-06 12:34 | ED ---
Throat Pain/Nasal Congestion - HPI Summary HPI Summary: 28 y/o M with hx stroke presenting to [facility] c/o 11/11 pain and swelling in his third upper right molar starting 2 nights ago. He states the tooth chipped and broke off. Last night the root of the tooth came out. He started having bleeding and pus drainage. He has not had problems with this tooth in the past. He has dental appointment scheduled for Saturday 07/15. - History of Current Complaint Chief Complaint: EDDentalPain Time Seen by Provider: 07/06/19 12:14 Hx Obtained From: Patient Onset/Duration: Lasting Days - 2, Still Present Severity: Severe - 11/11 - Allergies/Home Medications Allergies/Adverse Reactions: Allergies Allergy/AdvReac Type Severity Reaction Status Date / Time No Known Allergies Allergy Verified 12/10/18 11:16 Home Medications: Home Medications Ketorolac TAB * [Toradol TAB *] 10 mg PO Q6H PRN 7 Days #12 tab 07/06/19 [Rx] Penicillin VK 500 MG TAB(NF) [Penicillin VK 500 mg Tab] 500 mg PO QID 7 Days # 28 tab 07/06/19 [Rx] PMH/Surg Hx/FS Hx/Imm Hx Endocrine/Hematology History: Denies: Hx Diabetes Cardiovascular History: Denies: Hx Congestive Heart Failure, Hx Hypertension Respiratory History: Reports: Hx Asthma GI History: Reports: Hx Ulcer, Other GI Disorders - Hx hemorrhoids Neurological History: Reports: Other Neuro Impairments/Disorders - stroke - Surgical History Surgical History: Yes Surgery Procedure, Year, and Place[facility] in [place] Infectious Disease History: No Infectious Disease History: Denies: Traveled Outside the [place] in Last 30 Days - Family History Known Family History: Positive: Other - Denies Fhx ulcers Negative: Cardiac Disease, Hypertension, Diabetes Family History: Father had bleeding in brain from fall and stroke - Social History Alcohol Use: Daily Alcohol Amount: 4-5 beers every night Hx Substance Use: No Substance Use Type: Reports: None Hx Tobacco Use: Yes Smoking Status (MU): Current Every Day Smoker Type: Cigarettes, Smokeless Tobacco Amount Used/How Often: 1 PPD Review of Systems Negative: Fever Positive: Dental Pain All Other Systems Reviewed And Are Negative: Yes Physical Exam - Summary Physical Exam Summary: General: Well appearing, no distress HEENT: PERRL; poor dentition; third right upper molar is cracked with root exposure and mild surrounding erythema; no periapical abscess; no trismus Cardiovascular: Skin is well perfused Pulmonary: No respiratory distress, no tachypnea Abdomen: Non-distended Skin: Warm, pink, dry MSK: No edema Psych: Normal affect Neuro: A&Ox3 Triage Information Reviewed: Yes Vital Signs On Initial Exam: Initial Vitals Temp Pulse Resp BP Pulse Ox 96.6 F 65 20 141/99 97 07/06/19 12:08 07/06/19 12:08 07/06/19 12:08 07/06/19 12:08 07/06/19 12:08 Vital Signs Reviewed: Yes Procedures - Sedation Patient Received Moderate/Deep Sedation with Procedure: No Diagnostics - Vital Signs Vital Signs Temp Pulse Resp BP Pulse Ox 07/06/19 12:08 96.6 F 65 20 141/99 97 - Laboratory Lab Statement: Any lab studies that have been ordered have been reviewed, and results considered in the medical decision making process. EENT Course/Dx - Course Course Of Treatment: 28 y/o male p/w dental pain in setting of dental carries. - no obvious abscess, but given report of drainage will start penicillin. given pain meds as well. Has dental apt in one week - Diagnoses Provider Diagnoses: Pain, dental Discharge ED - Sign-Out/Discharge Documenting (check all that apply): Patient Departure - Discharge Plan Condition: Stable Disposition: HOME Prescriptions: Ketorolac TAB * [Toradol TAB *] 10 mg PO Q6H PRN 7 Days #12 tab PRN Reason: Pain - Moderate Penicillin VK 500 MG TAB(NF) [Penicillin VK 500 mg Tab] 500 mg PO QID 7 Days # 28 tab Patient Education Materials: Dental Abscess (ED), Toothache (ED) Referrals: Devin Fields MD [Primary Care Provider] - Additional Instructions: You were seen in the emergency department forpain. Please take penicillin for 1 week. Please take Toradol for pain and Tylenol for pain at home as well. Please return for severe pain, inability to open her mouth, fevers, worsening pain. Please follow up with your primary care doctor in next 2-3 days and return to emergency department for worsening or concerning symptoms. It was a pleasure taking care of you today. - Billing Disposition and Condition Condition: STABLE Disposition: Home - Attestation Statements Document Initiated by Scribe: Yes Documenting Scribe: Mari Zapata Provider For Whom Tyshawn is Documenting (Include Credential): Kelley Souza MD Scribe Attestation: IMari, scribed for Kelley Souza MD on 07/06/19 at 1259. Scribe Documentation Reviewed: Yes Provider Attestation: The documentation as recorded by the odellibMari macias accurately reflects the service I personally performed and the decisions made by me, Kelley Souza MD Status of Scribe Document: Viewed
[2019-07-06 13:13] VITALS: BP 152/90
== END 2019-07-06 13:12 | disposition home or self-care (01) ==
LOC: ED 12:07
DX: K08.89 Other specified disorders of teeth and supporting structures (principal); F17.210 Nicotine dependence, cigarettes, uncomplicated; Z87.19 Personal history of other diseases of the digestive system
CPT/HCPCS: 99282; A9270-GY